=== PATIENT | male | born 1945 | race African-American/Black ===

== ENCOUNTER 2019-01-21 15:24 | Emergency (ER) | payer BC ==
[~2019-01-21] VITALS: Ht 195.6 cm; Wt 95.4 kg
[2019-01-21 15:45] LABS: HEMATOCRIT 39.8 % (39.0-50.0); IMMATURE GRANULOCYTES 0.8 % (0.0-5.0); MEAN CELL VOLUME 90.2 fL CALC (80.0-100.0); MEAN CORPUSCULAR HGB 29.5 pG CALC (26.0-32.0); MEAN CORPUSCULAR HGB CONC 32.7 g/L CALC (32.0-36.0); NEUT# 9.02 thou/uL (1.82-7.42); RED BLOOD COUNT 4.41 mill/uL (4.70-6.10); RED CELL DISTRI WIDTH 14.8 % (11.5-15.5)
[2019-01-21] MEDS ORDERED: PROPRANOLOL HCL20 MG PO (15:59)
[2019-01-21] MEDS ORDERED: PROTONIX40 M2 PO (15:59)
[2019-01-21] MEDS ORDERED: PRIMIDONE50 MG PO (15:59)
[2019-01-21] MEDS ORDERED: LANTUS100 UNIT/M (16:00)
[2019-01-21 16:08] LABS: ALBUMIN 4.9 g/dL (3.2-5.0); ALKALINE PHOSPHATASE 124 u/l (38-126); BUN 14 mg/dL (8-23); BUN/CREATININE RATIO 13 (12-20 (CALC)); CARBON DIOXIDE 23 mmol/l (22-30); CHLORIDE 100 mmol/l (95-108); CPK 92 u/l (52-200); CREATININE 1.1 mg/dL (0.7-1.3); GFR > 60 ML/MIN (>=60 (CALC)); GFR FOR AFR.AMER. > 60 ML/MIN (>=60 (CALC)); LIPASE 39 u/l (23-300); SGOT/AST 22 u/l (19-48); SODIUM 139 mmol/l (137-146); TOTAL PROTEIN 8.9 g/dL (6.3-8.2)
[2019-01-21 16:09] LABS: INTERNATIONAL NORMALIZED RATIO 1.1 RATIO (0.7-1.3); PROTHROMBIN TIME 11.1 SECONDS (9.0-12.5)
[2019-01-21 16:13] LABS: ANION GAP 21 (6-22 (CALC)); BILIRUBIN, TOTAL 0.5 mg/dL (0.0-1.4); POTASSIUM 4.7 mmol/l (3.5-5.1)
[2019-01-21 16:24] LABS: MYOGLOBIN 192 ng/mL (0 - 121)
[2019-01-21 16:43] LABS: TSH, 3RD GENERATION 0.93 uIU/mL (0.47 - 4.68)
[2019-01-21 17:43] LABS: URINE BILIRUBIN - DIPSTICK NEGATIVE (NEGATIVE); URINE BLOOD DIPSTICK SMALL (NEGATIVE); URINE COLOR YELLOW; URINE GLUCOSE - DIPSTICK >=1000 mg/dL (NEGATIVE); URINE KETONE NEGATIVE (NEGATIVE); URINE LEUK ESTERASE NEGATIVE (NEGATIVE); URINE NITRITE - DIPSTICK NEGATIVE (Negative); URINE PH 6.5 (4.5-8.0); URINE PROTEIN - DIPSTICK 30 mg/dL (NEG-TRACE); URINE SPECIFIC GRAVITY 1.025; URINE UROBILINOGEN - DIPSTICK 0.2 E.U./dL (0.2)
[2019-01-21 17:44] LABS: URINE WBC 0-2 WBC/hpf (0-5)
[2019-01-21 17:56] VITALS: BP 158/88
== END 2019-01-21 17:56 | disposition short-term general hospital (02) | DRG 948 ==
LOC: ED 15:24
PROVIDERS: Family Medicine
DX: R41.82 Altered mental status, unspecified (principal); E87.2 Acidosis; E11.9 Type 2 diabetes mellitus without complications; I10 Essential (primary) hypertension; Z86.73 Personal history of transient ischemic attack (TIA), and cerebral infarction without residual deficits; Z79.4 Long term (current) use of insulin; Z79.899 Other long term (current) drug therapy

== ENCOUNTER 2022-02-07 12:07 | Emergency (ER) | payer SELFPAY ==
[~2022-02-07] VITALS: Ht 190.5 cm; Wt 93.6 kg
[2022-02-07] VITALS (9 sets, daily range): BP systolic 165–193; BP diastolic 89–104
[~2022-02-07 12:07] MED LIST: LANTUS100 UNIT/M; PRIMIDONE50 MG PO; PROPRANOLOL HCL20 MG PO; PROTONIX40 M2 PO
[2022-02-07] MEDS ORDERED: OMNICEF300 M1 PO (14:20)
[2022-02-07] MEDS ORDERED: AMLODIPINE BESY10 MG PO (14:26)
== END 2022-02-07 14:45 | disposition home or self-care (01) | DRG 204 ==
LOC: ED 12:07
DX: R05.9 Cough, unspecified (principal); I10 Essential (primary) hypertension; J02.9 Acute pharyngitis, unspecified

== ENCOUNTER 2022-09-23 08:47 | Emergency (ER) | payer MEDICARE ==
[2022-09-23] VITALS (14 sets, daily range): BP systolic 128–143; BP diastolic 70–83
[~2022-09-23] VITALS: Ht 190.5 cm; Wt 82.0 kg
[~2022-09-23 08:47] MED LIST changes: +AMLODIPINE BESY10 MG PO; +OMNICEF300 M1 PO
[2022-09-23 10:04] LABS: URINE BILIRUBIN - DIPSTICK NEGATIVE (NEGATIVE); URINE BLOOD DIPSTICK NEGATIVE (NEGATIVE); URINE COLOR YELLOW; URINE GLUCOSE - DIPSTICK 250 mg/dL (NEGATIVE); URINE KETONE NEGATIVE (NEGATIVE); URINE LEUK ESTERASE NEGATIVE (NEGATIVE); URINE PROTEIN - DIPSTICK 30 mg/dL (NEG-TRACE); URINE SPECIFIC GRAVITY >=1.030
[2022-09-23 10:06] LABS: URINE NITRITE - DIPSTICK NEGATIVE (Negative)
[2022-09-23 10:11] LABS: URINE EPITHELIAL CELLS FEW EPI/hpf (0-FEW); URINE MUCUS MODERATE hpf (NONE-FEW)
[2022-09-23 12:43] LABS: BASO% 0.8 % (0-3); EOS% 2.4 % (0-8); HEMATOCRIT 41.4 % (39.0-50.0); HEMOGLOBIN 13.1 g/dl (14.0-18.0); IMMATURE GRANULOCYTES 0.2 % (0.0-5.0); MEAN CELL VOLUME 95.6 fL CALC (80.0-100.0); MEAN CORPUSCULAR HGB 30.3 pG CALC (26.0-32.0); MEAN CORPUSCULAR HGB CONC 31.6 g/dL CAL (32.0-36.0); MONO% 7.5 % (2-13); NEUT# 3.15 thou/uL (1.82-7.42); NEUT% 62.1 % (42-76); RED BLOOD COUNT 4.33 mill/uL (4.70-6.10); RED CELL DISTRI WIDTH 15.6 % (11.5-15.5)
[2022-09-23 12:56] LABS: ALBUMIN 4.9 g/dL (3.2-5.0); ALKALINE PHOSPHATASE 77 u/l (38-126); ANION GAP 14 (6-22 (CALC)); BUN 14 mg/dL (8-23); BUN/CREATININE RATIO 12 (12-20 (CALC)); CARBON DIOXIDE 26 mmol/l (22-30); CHLORIDE 105 mmol/l (95-108); CREATININE 1.1 mg/dL (0.7-1.3); GFR FOR AFR.AMER. > 60 ML/MIN (>=60 (CALC)); GFR OTHER RACES > 60 ML/MIN (>=60 (CALC)); POTASSIUM 3.9 mmol/l (3.5-5.1); SGOT/AST 19 u/l (19-48); SODIUM 142 mmol/l (137-146)
[2022-09-23 12:58] LABS: BILIRUBIN, TOTAL 0.8 mg/dL (0.2-1.3)
== END 2022-09-23 13:37 | disposition home or self-care (01) ==
LOC: ED 08:47
PROVIDERS: Family Medicine
DX: R39.12 Poor urinary stream (principal); Z86.73 Personal history of transient ischemic attack (TIA), and cerebral infarction without residual deficits

== ENCOUNTER 2022-10-12 04:06 | Emergency (ER) | payer MEDICARE ==
[~2022-10-12] VITALS: Ht 190.5 cm; Wt 95.0 kg
[2022-10-12] VITALS (8 sets, daily range): BP systolic 140–156; BP diastolic 76–93
[2022-10-12 04:50] LABS: BASO% 0.9 % (0-3); EOS% 3.6 % (0-8); HEMOGLOBIN 11.3 g/dl (14.0-18.0); IMMATURE GRANULOCYTES 0.2 % (0.0-5.0); LYMPH% 31.2 % (15-41); MEAN CELL VOLUME 96.2 fL CALC (80.0-100.0); MEAN CORPUSCULAR HGB CONC 32.3 g/dL CAL (32.0-36.0); MONO% 9.9 % (2-13); NEUT# 2.4 thou/uL (1.82-7.42); NEUT% 54.2 % (42-76); RED BLOOD COUNT 3.64 mill/uL (4.70-6.10); RED CELL DISTRI WIDTH 15.3 % (11.5-15.5)
[2022-10-12 04:51] LABS: URINE BILIRUBIN - DIPSTICK NEGATIVE (NEGATIVE); URINE COLOR YELLOW; URINE GLUCOSE - DIPSTICK NEGATIVE (NEGATIVE); URINE KETONE Negative (NEGATIVE); URINE PH 5.5 (4.5-8.0)
[2022-10-12 04:52] LABS: URINE BLOOD DIPSTICK NEGATIVE (NEGATIVE); URINE LEUK ESTERASE NEGATIVE (NEGATIVE); URINE NITRITE - DIPSTICK NEGATIVE (Negative); URINE PROTEIN - DIPSTICK NEGATIVE (NEG-TRACE)
[2022-10-12 05:02] LABS: ALBUMIN 4.2 g/dL (3.2-5.0); ALKALINE PHOSPHATASE 61 u/l (38-126); ANION GAP 11 (6-22 (CALC)); BILIRUBIN, TOTAL 0.6 mg/dL (0.2-1.3); BUN 14 mg/dL (8-23); BUN/CREATININE RATIO 13 (12-20 (CALC)); CARBON DIOXIDE 28 mmol/l (22-30); CHLORIDE 106 mmol/l (95-108); CREATININE 1.1 mg/dL (0.7-1.3); GFR FOR AFR.AMER. > 60 ML/MIN (>=60 (CALC)); GFR OTHER RACES > 60 ML/MIN (>=60 (CALC)); POTASSIUM 3.6 mmol/l (3.5-5.1); SGOT/AST 19 u/l (19-48); SODIUM 140 mmol/l (137-146); TOTAL PROTEIN 7.4 g/dL (6.3-8.2)
[2022-10-12] MEDS ORDERED: VOLTAREN - GENE75 MG PO (06:44)
== END 2022-10-12 06:52 | disposition home or self-care (01) ==
LOC: ED 04:06
PROVIDERS: Family Medicine
DX: S39.012A Strain of muscle, fascia and tendon of lower back, initial encounter (principal); M47.816 Spondylosis without myelopathy or radiculopathy, lumbar region; I10 Essential (primary) hypertension; I69.998 Other sequelae following unspecified cerebrovascular disease; N31.9 Neuromuscular dysfunction of bladder, unspecified; I69.954 Hemiplegia and hemiparesis following unspecified cerebrovascular disease affecting left non-dominant side; X58.XXXA Exposure to other specified factors, initial encounter
CPT/HCPCS: Q9967

== ENCOUNTER 2022-10-22 11:33 | Emergency (ER) | payer MEDICARE ==
[~2022-10-22] VITALS: Ht 190.5 cm; Wt 84.0 kg
[~2022-10-22 11:33] MED LIST changes: +VOLTAREN - GENE75 MG PO
[2022-10-22 11:46] VITALS: BP 144/81
[2022-10-22 12:00] VITALS: BP 148/84
[2022-10-22 13:27] LABS: URINE BILIRUBIN - DIPSTICK NEGATIVE (NEGATIVE); URINE COLOR YELLOW; URINE GLUCOSE - DIPSTICK NEGATIVE (NEGATIVE)
[2022-10-22 13:28] LABS: URINE BLOOD DIPSTICK NEGATIVE (NEGATIVE); URINE KETONE TRACE mg/dL (NEGATIVE); URINE LEUK ESTERASE NEGATIVE (NEGATIVE); URINE NITRITE - DIPSTICK NEGATIVE (Negative); URINE PROTEIN - DIPSTICK 30 mg/dL (NEG-TRACE); URINE SPECIFIC GRAVITY 1.025; URINE UROBILINOGEN - DIPSTICK 0.2 E.U./dL (0.2)
[2022-10-22 13:43] LABS: URINE MUCUS RARE hpf (NONE-FEW)
[2022-10-22] MEDS ORDERED: METHOCARBAMOL500 MG PO (13:53)
[2022-10-22] MEDS ORDERED: MEDDOSEPAK PO (13:53)
[2022-10-22 14:15] VITALS: BP 136/81
[2022-10-22 14:31] VITALS: BP 147/78
[2022-10-22 14:39] VITALS: BP 147/78
== END 2022-10-22 14:56 | disposition home or self-care (01) ==
LOC: ED 11:33
PROVIDERS: Nurse Practitioner
DX: M47.816 Spondylosis without myelopathy or radiculopathy, lumbar region (principal); Z86.73 Personal history of transient ischemic attack (TIA), and cerebral infarction without residual deficits

== ENCOUNTER 2023-04-27 09:49 | Observation (INO) | payer MEDICARE ==
[2023-04-27] VITALS (11 sets, daily range): BP systolic 120–139; BP diastolic 70–90
[~2023-04-27] VITALS: Ht 190.5 cm; Wt 84.0 kg
[~2023-04-27 09:49] MED LIST changes: +MEDDOSEPAK PO; +METHOCARBAMOL500 MG PO; +NOVOLOG100 UNIT
[2023-04-27 10:42] LABS: BASO% 0.3 % (0-3); EOS% 0.9 % (0-8); HEMOGLOBIN 11.8 g/dl (14.0-18.0); IMMATURE GRANULOCYTES 0.5 % (0.0-5.0); LYMPH% 9.4 % (15-41); MEAN CELL VOLUME 94.3 fL CALC (80.0-100.0); MEAN CORPUSCULAR HGB 29.3 pG CALC (26.0-32.0); MEAN CORPUSCULAR HGB CONC 31.1 g/dL CAL (32.0-36.0); MONO% 8.5 % (2-13); NEUT# 7.52 thou/uL (1.82-7.42); NEUT% 80.4 % (42-76); RED BLOOD COUNT 4.03 mill/uL (4.70-6.10); RED CELL DISTRI WIDTH 15.1 % (11.5-15.5)
[2023-04-27 10:56] LABS: INTERNATIONAL NORMALIZED RATIO 1.3 RATIO (0.7-1.3); PROTHROMBIN TIME 12.6 SECONDS (9.0-12.5)
[2023-04-27 10:57] LABS: ALBUMIN 3.9 g/dL (3.2-5.0); ALKALINE PHOSPHATASE 75 u/l (38-126); ANION GAP 10 (6-22 (CALC)); BILIRUBIN, TOTAL 0.4 mg/dL (0.2-1.3); BUN 10 mg/dL (8-23); BUN/CREATININE RATIO 12 (12-20 (CALC)); CARBON DIOXIDE 31 mmol/l (22-30); CHLORIDE 102 mmol/l (95-108); CREATININE 0.9 mg/dL (0.7-1.3); GFR FOR AFR.AMER. > 60 ML/MIN (>=60 (CALC)); GFR OTHER RACES > 60 ML/MIN (>=60 (CALC)); SGOT/AST 20 u/l (19-48); SODIUM 139 mmol/l (137-146); TOTAL PROTEIN 7.8 g/dL (6.3-8.2)
[2023-04-27 11:15] LABS: D-DIMER 4.92 mg/L (0.19-0.60)
[2023-04-27] MEDS ORDERED: predniSONE 20 MG/TAB PO ONE (12:15)
[2023-04-27] MEDS ORDERED: ENOXAPARIN SODIUM 100 MG/ML SYR SC ONE (13:15)
[2023-04-27] MEDS ORDERED: TAMSULOSIN0.4 MG PO (14:00)
[2023-04-27] MEDS ORDERED: OXYCODONE5 M1 PO (14:01)
[2023-04-27] MEDS ORDERED: ZOLOFT50 MG PO (14:02)
[2023-04-27] MEDS ORDERED: ACETAMINOPHEN 325 MG/TAB PO PRN (14:05)
[2023-04-27] MEDS ORDERED: MAGNESIUM HYDROXIDE 30 ML UDC PO PRN (14:05)
[2023-04-27] MEDS ORDERED: HYDROcodone 5 MG/Acetaminophen 325 MG/COMBO PO PRN (14:10)
[2023-04-27] MEDS ORDERED: oxyCODONE HCL 5 MG/TAB PO PRN (14:15)
[2023-04-27] MEDS ORDERED: GABAPENTIN 300 MG/CAP PO SCH (15:00)
[2023-04-27] MEDS ORDERED: INSULIN LISPRO 100 UNITS/ML ML SC SCH (17:00)
[2023-04-27] MEDS ORDERED: INSULIN DETEMIR 100 UNITS/ML SC SCH (21:00)
[2023-04-28] VITALS (7 sets, daily range): BP systolic 110–114; BP diastolic 68–76
[2023-04-28 05:38] LABS: BASO% 0.2 % (0-3); HEMATOCRIT 33.9 % (39.0-50.0); HEMOGLOBIN 10.9 g/dl (14.0-18.0); IMMATURE GRANULOCYTES 0.6 % (0.0-5.0); LYMPH% 11.9 % (15-41); MEAN CELL VOLUME 92.9 fL CALC (80.0-100.0); MEAN CORPUSCULAR HGB 29.9 pG CALC (26.0-32.0); MEAN CORPUSCULAR HGB CONC 32.2 g/dL CAL (32.0-36.0); MONO% 7.3 % (2-13); NEUT# 8.63 thou/uL (1.82-7.42); RED BLOOD COUNT 3.65 mill/uL (4.70-6.10); RED CELL DISTRI WIDTH 15.5 % (11.5-15.5)
[2023-04-28 05:52] LABS: ALBUMIN 3.6 g/dL (3.2-5.0); ALKALINE PHOSPHATASE 71 u/l (38-126); BILIRUBIN, TOTAL 0.4 mg/dL (0.2-1.3); BUN 20 mg/dL (8-23); BUN/CREATININE RATIO 19 (12-20 (CALC)); CALCULATED LDLCHOLESTEROL 72 mg/dL (62-129 (CALC)); CARBON DIOXIDE 27 mmol/l (22-30); CHLORIDE 104 mmol/l (95-108); CHOLESTEROL HDL RATIO 2.9 (<4.4 (CALC)); CREATININE 1.1 mg/dL (0.7-1.3); GFR FOR AFR.AMER. > 60 ML/MIN (>=60 (CALC)); GFR OTHER RACES > 60 ML/MIN (>=60 (CALC)); HDL CHOLESTEROL 44 mg/dL (39.0-59.0); MAGNESIUM 2.2 mg/dL (1.6-2.3); SGOT/AST 17 u/l (19-48); SODIUM 137 mmol/l (137-146); TOTAL CHOLESTEROL 126 mg/dl (0-199); TOTAL PROTEIN 7.3 g/dL (6.3-8.2); TOTAL TRIGLYCERIDES 52 mg/dl (0-149); VLDL CHOLESTROL 10 mg/dl (0-38 (CALC))
[2023-04-28 05:54] LABS: ANION GAP 11 (6-22 (CALC))
[2023-04-28] MEDS ORDERED: TAMSULOSIN HCL 0.4 MG CAP PO SCH (08:00)
[2023-04-28] MEDS ORDERED: amLODIPine BESYLATE 5 MG/TAB PO SCH (09:00)
[2023-04-28] MEDS ORDERED: SERTRALINE HCL 50 MG/TAB PO SCH (09:00)
[2023-04-28] MEDS ORDERED: APIXABAN BASE 2.5 MG/TAB TAB PO SCH (09:00)
[2023-04-29] VITALS (7 sets, daily range): BP systolic 105–122; BP diastolic 65–77
[2023-04-29 05:48] LABS: BASO% 0.6 % (0-3); EOS% 2.3 % (0-8); HEMATOCRIT 32.1 % (39.0-50.0); HEMOGLOBIN 10.3 g/dl (14.0-18.0); IMMATURE GRANULOCYTES 0.9 % (0.0-5.0); LYMPH% 26.7 % (15-41); MEAN CELL VOLUME 93.6 fL CALC (80.0-100.0); MEAN CORPUSCULAR HGB CONC 32.1 g/dL CAL (32.0-36.0); MONO% 10.3 % (2-13); NEUT# 3.78 thou/uL (1.82-7.42); NEUT% 59.2 % (42-76); RED BLOOD COUNT 3.43 mill/uL (4.70-6.10); RED CELL DISTRI WIDTH 15.6 % (11.5-15.5)
[2023-04-29 06:11] LABS: ANION GAP 10 (6-22 (CALC)); BUN 23 mg/dL (8-23); BUN/CREATININE RATIO 25 (12-20 (CALC)); CARBON DIOXIDE 28 mmol/l (22-30); CHLORIDE 104 mmol/l (95-108); CREATININE 0.9 mg/dL (0.7-1.3); GFR FOR AFR.AMER. > 60 ML/MIN (>=60 (CALC)); GFR OTHER RACES > 60 ML/MIN (>=60 (CALC)); POTASSIUM 4.1 mmol/l (3.5-5.1); SODIUM 138 mmol/l (137-146)
[2023-04-29 14:39] LABS: URINE BILIRUBIN - DIPSTICK Negative (NEGATIVE); URINE BLOOD DIPSTICK Negative (NEGATIVE); URINE COLOR Yellow; URINE GLUCOSE - DIPSTICK Negative (NEGATIVE); URINE KETONE Negative (NEGATIVE); URINE LEUK ESTERASE Negative (NEGATIVE); URINE NITRITE - DIPSTICK Negative (Negative); URINE PH 5.5 (4.5-8.0); URINE PROTEIN - DIPSTICK Negative (NEG-TRACE); URINE SPECIFIC GRAVITY >=1.030; URINE UROBILINOGEN - DIPSTICK 0.2 E.U./dL (0.2)
[2023-04-29] MEDS ORDERED: Polyethylene Glycol 3350 17 GM/PKT PO SCH (16:10)
[2023-04-30] VITALS (7 sets, daily range): BP systolic 110–128; BP diastolic 65–79
[2023-04-30 06:51] LABS: BASO% 0.5 % (0-3); EOS% 2.7 % (0-8); HEMATOCRIT 32.9 % (39.0-50.0); HEMOGLOBIN 10.4 g/dl (14.0-18.0); IMMATURE GRANULOCYTES 1.1 % (0.0-5.0); LYMPH% 22.3 % (15-41); MEAN CELL VOLUME 94.8 fL CALC (80.0-100.0); MEAN CORPUSCULAR HGB CONC 31.6 g/dL CAL (32.0-36.0); MONO% 8.7 % (2-13); NEUT# 4.15 thou/uL (1.82-7.42); NEUT% 64.7 % (42-76); RED BLOOD COUNT 3.47 mill/uL (4.70-6.10); RED CELL DISTRI WIDTH 15.6 % (11.5-15.5)
[2023-04-30 07:45] LABS: ALBUMIN 3.2 g/dL (3.2-5.0); ALKALINE PHOSPHATASE 62 u/l (38-126); ANION GAP 8 (6-22 (CALC)); BUN 17 mg/dL (8-23); BUN/CREATININE RATIO 21 (12-20 (CALC)); CARBON DIOXIDE 30 mmol/l (22-30); CHLORIDE 105 mmol/l (95-108); CREATININE 0.8 mg/dL (0.7-1.3); GFR FOR AFR.AMER. > 60 ML/MIN (>=60 (CALC)); GFR OTHER RACES > 60 ML/MIN (>=60 (CALC)); POTASSIUM 4.3 mmol/l (3.5-5.1); SGOT/AST 26 u/l (19-48); SODIUM 138 mmol/l (137-146); TOTAL PROTEIN 6.5 g/dL (6.3-8.2)
[2023-04-30 07:59] LABS: BILIRUBIN, TOTAL 0.2 mg/dL (0.2-1.3)
[2023-04-30] MEDS ORDERED: BISACODYL 10 MG SUPP RE SCH (10:30)
[2023-04-30] MEDS ORDERED: LACTULOSE 20 GM/30 ML UDC PO SCH (13:30)
[2023-05-01] VITALS (9 sets, daily range): BP systolic 112–127; BP diastolic 64–73
[2023-05-01 07:32] LABS: BASO% 0.4 % (0-3); HEMATOCRIT 32.7 % (39.0-50.0); HEMOGLOBIN 10.2 g/dl (14.0-18.0); IMMATURE GRANULOCYTES 1.2 % (0.0-5.0); LYMPH% 24.9 % (15-41); MEAN CORPUSCULAR HGB 30.3 pG CALC (26.0-32.0); MEAN CORPUSCULAR HGB CONC 31.2 g/dL CAL (32.0-36.0); MONO% 7.1 % (2-13); NEUT# 4.39 thou/uL (1.82-7.42); NEUT% 63.4 % (42-76); RED BLOOD COUNT 3.37 mill/uL (4.70-6.10); RED CELL DISTRI WIDTH 15.7 % (11.5-15.5)
[2023-05-01 07:57] LABS: ANION GAP 11 (6-22 (CALC)); BUN 15 mg/dL (8-23); BUN/CREATININE RATIO 19 (12-20 (CALC)); CARBON DIOXIDE 28 mmol/l (22-30); CHLORIDE 104 mmol/l (95-108); CREATININE 0.8 mg/dL (0.7-1.3); GFR FOR AFR.AMER. > 60 ML/MIN (>=60 (CALC)); GFR OTHER RACES > 60 ML/MIN (>=60 (CALC)); POTASSIUM 4.6 mmol/l (3.5-5.1); SODIUM 138 mmol/l (137-146)
[2023-05-02 00:25] VITALS: BP 110/69
[2023-05-02 03:20] VITALS: BP 118/68
[2023-05-02 05:33] LABS: BASO% 0.3 % (0-3); EOS% 4.3 % (0-8); HEMOGLOBIN 9.9 g/dl (14.0-18.0); IMMATURE GRANULOCYTES 1.4 % (0.0-5.0); MEAN CORPUSCULAR HGB CONC 30.9 g/dL CAL (32.0-36.0); MONO% 7.1 % (2-13); NEUT# 4.23 thou/uL (1.82-7.42); NEUT% 64.9 % (42-76); RED BLOOD COUNT 3.3 mill/uL (4.70-6.10); RED CELL DISTRI WIDTH 15.5 % (11.5-15.5)
[2023-05-02 05:47] LABS: ANION GAP 7 (6-22 (CALC)); BUN 13 mg/dL (8-23); BUN/CREATININE RATIO 15 (12-20 (CALC)); CARBON DIOXIDE 30 mmol/l (22-30); CHLORIDE 105 mmol/l (95-108); CREATININE 0.9 mg/dL (0.7-1.3); GFR FOR AFR.AMER. > 60 ML/MIN (>=60 (CALC)); GFR OTHER RACES > 60 ML/MIN (>=60 (CALC)); POTASSIUM 4.1 mmol/l (3.5-5.1); SODIUM 138 mmol/l (137-146)
[2023-05-02 07:42] VITALS: BP 123/77
[2023-05-02 10:58] VITALS: BP 116/71
[2023-05-02] MEDS ORDERED: TRESIBA FL100 UNIT/M SC (12:59)
[2023-05-02] MEDS ORDERED: ELIQUIS2.5 MG PO (13:01)
[2023-05-02 14:50] VITALS: BP 119/69
[2023-05-05] MEDS ORDERED: APIXABAN BASE 2.5 MG/TAB TAB PO SCH (09:00)
== END 2023-05-02 19:00 ==
LOC: ED 09:49 → ED-I 10:34 → ED 13:24 → MS2 13:25
PROVIDERS: Nurse Practitioner; Nurse Practitioner Family; ADMIT Student in an Organized Health Care Education/Training Program; ATTEND Student in an Organized Health Care Education/Training Program
DX: I82.412 Acute embolism and thrombosis of left femoral vein (principal); I82.432 Acute embolism and thrombosis of left popliteal vein; K59.00 Constipation, unspecified; M47.816 Spondylosis without myelopathy or radiculopathy, lumbar region; D64.9 Anemia, unspecified; E11.9 Type 2 diabetes mellitus without complications; I10 Essential (primary) hypertension; Z79.4 Long term (current) use of insulin; Z86.73 Personal history of transient ischemic attack (TIA), and cerebral infarction without residual deficits; Z96.642 Presence of left artificial hip joint
CPT/HCPCS: J1650

== ENCOUNTER 2023-05-20 02:49 | Emergency (ER) | payer MEDICARE ==
[2023-05-20] VITALS (18 sets, daily range): BP systolic 104–133; BP diastolic 62–76
[~2023-05-20] VITALS: Ht 190.5 cm; Wt 82.3 kg
[~2023-05-20 02:49] MED LIST changes: +ELIQUIS2.5 MG PO; +OXYCODONE5 M1 PO; +TAMSULOSIN0.4 MG PO; +TRESIBA FL100 UNIT/M SC; +ZOLOFT50 MG PO
[2023-05-20] MEDS ORDERED: REMERON SOLTAB15 MG PO (03:21)
[2023-05-20] MEDS ORDERED: JANTOVEN5 MG PO (03:23)
[2023-05-20 06:36] LABS: URINE BILIRUBIN - DIPSTICK Negative (NEGATIVE); URINE BLOOD DIPSTICK Large (NEGATIVE); URINE GLUCOSE - DIPSTICK Negative (NEGATIVE); URINE PROTEIN - DIPSTICK 30 mg/dL (NEG-TRACE); URINE UROBILINOGEN - DIPSTICK 0.2 E.U./dL (0.2)
[2023-05-20 06:43] LABS: URINE COLOR Yellow; URINE LEUK ESTERASE Moderate (NEGATIVE); URINE NITRITE - DIPSTICK Positive (Negative)
[2023-05-20 06:44] LABS: URINE KETONE Negative (NEGATIVE); URINE RBC 25-50 RBC/hpf (0-5); URINE WBC >100 WBC/hpf (0-5)
[2023-05-20 06:45] LABS: URINE BACTERIA MANY hpf; URINE EPITHELIAL CELLS MODERATE EPI/hpf (0-FEW)
[2023-05-20] MEDS ORDERED: HYDROcodone 5 MG/Acetaminophen 325 MG/COMBO PO ONE (06:45)
[2023-05-20 06:51] LABS: PROTHROMBIN TIME 18.3 SECONDS (9.0-12.5)
[2023-05-20] MEDS ORDERED: SULFAMETHOXAZOLE W/TRIMETHOPRI 1 COMBO TAB PO ONE (07:00)
[2023-05-20] MEDS ORDERED: BACTRIM DS1 TAB PO (07:00)
[2023-05-20] MEDS ORDERED: CEPHALEXIN500 MG PO (09:23)
[2023-05-23] MEDS ORDERED: OXYCODONE5 M1 PO (16:23)
== END 2023-05-20 07:18 | disposition home or self-care (01) ==
LOC: ED 02:49
PROVIDERS: Family Medicine
DX: N39.0 Urinary tract infection, site not specified (principal); B96.89 Other specified bacterial agents as the cause of diseases classified elsewhere; M17.12 Unilateral primary osteoarthritis, left knee; I10 Essential (primary) hypertension; E11.9 Type 2 diabetes mellitus without complications; L89.152 Pressure ulcer of sacral region, stage 2; Z86.73 Personal history of transient ischemic attack (TIA), and cerebral infarction without residual deficits; Z79.01 Long term (current) use of anticoagulants; Z79.4 Long term (current) use of insulin; Z96.652 Presence of left artificial knee joint

== ENCOUNTER 2024-02-18 10:51 | Observation (INO) | payer MEDICARE ==
[~2024-02-18] VITALS: Ht 190.5 cm; Wt 88.4 kg
[2024-02-18] VITALS (14 sets, daily range): BP systolic 118–140; BP diastolic 69–82
[~2024-02-18 10:51] MED LIST changes: +BACTRIM DS1 TAB PO; +BAYER ASPIRIN E81 MG PO; +CEPHALEXIN500 MG PO; +DOXYCYCLINE100 MG PO; +HYDROCO/APAP1 TA9 PO; +JANTOVEN5 MG PO; +MIRTAZAPINE15 M1 PO; +NORVASC PO; +OXYBUTYNIN CHLOR5 M2; +REMERON SOLTAB15 MG PO
--- NOTE | 2024-02-18 10:51 | NUR ---
PT TO ER ROOM 10 VIA PERSONAL WHEELCHAIR. AT SIDE.
[2024-02-18 11:37] LABS: BASO% 0.6 % (0-3); EOS% 2.5 % (0-8); HEMATOCRIT 30.7 % (39.0-50.0); HEMOGLOBIN 9.6 g/dl (14.0-18.0); IMMATURE GRANULOCYTES 0.2 % (0.0-5.0); LYMPH% 11.3 % (15-41); MEAN CELL VOLUME 92.5 fL CALC (80.0-100.0); MEAN CORPUSCULAR HGB 28.9 pG CALC (26.0-32.0); MEAN CORPUSCULAR HGB CONC 31.3 g/dL CAL (32.0-36.0); MONO% 7.4 % (2-13); NEUT# 6.43 thou/uL (1.82-7.42); RED BLOOD COUNT 3.32 mill/uL (4.70-6.10)
--- NOTE | 2024-02-18 11:50 | NUR ---
Reassessment of patient completed. No distress noted.
[2024-02-18 12:04] LABS: ALBUMIN 4.3 g/dL (3.2-5.0); ALKALINE PHOSPHATASE 69 u/l (38-126); ANION GAP 13 (6-22 (CALC)); BUN 14 mg/dL (8-23); BUN/CREATININE RATIO 12 (12-20 (CALC)); CARBON DIOXIDE 25 mmol/l (22-30); CHLORIDE 105 mmol/l (95-108); CREATININE 1.2 mg/dL (0.7-1.3); ESTIMATED GFR 62 ML/MIN (>=90 (CALC)); LIPASE 17 u/l (23-300); POTASSIUM 3.6 mmol/l (3.5-5.1); SODIUM 140 mmol/l (137-146); TOTAL PROTEIN 8.1 g/dL (6.3-8.2)
[2024-02-18 12:05] LABS: BILIRUBIN, TOTAL 0.7 mg/dL (0.2-1.3); SGOT/AST 25 u/l (19-48)
--- NOTE | 2024-02-18 12:45 | NUR ---
DR EVANS AT BEDSIDE TO DISCUSS RESULTS AND POC
[2024-02-18] MEDS ORDERED: cefTRIAXone SODIUM 2 GM in SODIUM CHLORIDE 0.9% 100 ML IV ONE (12:50)
[2024-02-18] MEDS ORDERED: AZITHROMYCIN 250 MG/TAB PO ONE (12:55)
[2024-02-18] MEDS ORDERED: AMLODIPINE BESYL5 MG PO (13:21)
[2024-02-18] MEDS ORDERED: TAMSULOSIN0.4 MG PO (13:22)
[2024-02-18] MEDS ORDERED: JANTOVEN5 MG PO (13:22)
[2024-02-18] MEDS ORDERED: MIRTAZAPINE15 MG PO (13:23)
[2024-02-18] MEDS ORDERED: OXYCODONE5 M1 PO (13:23)
[2024-02-18] MEDS ORDERED: ACETAMINOPHEN 325 MG/TAB PO PRN (13:30)
[2024-02-18] MEDS ORDERED: MAGNESIUM HYDROXIDE 30 ML UDC PO PRN (13:30)
[2024-02-18] MEDS ORDERED: OXYBUTYNIN CHLO15 MG PO (13:33)
[2024-02-18 13:43] LABS: URINE BILIRUBIN - DIPSTICK Negative (NEGATIVE); URINE BLOOD DIPSTICK Negative (NEGATIVE); URINE GLUCOSE - DIPSTICK Negative (NEGATIVE); URINE KETONE Negative (NEGATIVE); URINE LEUK ESTERASE Negative (NEGATIVE); URINE NITRITE - DIPSTICK Negative (Negative); URINE PH 5.5 (4.5-8.0); URINE PROTEIN - DIPSTICK 30 mg/dL (NEG-TRACE); URINE SPECIFIC GRAVITY 1.025
--- NOTE | 2024-02-18 13:44 | NUR ---
REPORT CALLED TO YAYA JAEGER
[2024-02-18 13:47] LABS: URINE COLOR Yellow
[2024-02-18 13:54] LABS: URINE SQUAMOUS EPITHELIAL CELL RARE EPI/hpf (0-FEW)
--- NOTE | 2024-02-18 14:00 | NUR ---
PT ARRIVED TO UNIT VIA STREACHER TRANSPORT, PT DID REQUIRE A SLIDE TRANSFER TO BED, PT UNABLE TO WALK TO THE BED ON HIS OWN, USES WHEELCHAIR AT HOME.
--- NOTE | 2024-02-18 14:01 | NUR ---
TO MED SURG VIA STRETCHER, WITH ALL PERSONAL BELONGINGS. TELE MONITOR #[address] YAYA JAEGER AT BEDSIDE
--- NOTE | 2024-02-18 14:05 | NUR ---
PT IS AOX3, RESPIRATIONS ARE EVEN AND UNLABORED, LUNGS ARE DIM AT BILATERAL LOWER LOBES, CLEAR AT BILATERAL UPPER LOBES. BOWEL SOUNDS ARE ACTIVE, PEDAL PULSES ARE PALPABLE TO TOUCH, PT DENIES PAIN AT THIS TIME.
--- NOTE | 2024-02-18 18:09 | NUR ---
PT SITTING UP IN BED WATCHING TV. RESPIRATIONS REMAIN EVEN AND UNLABORED, PT DENIES PAIN AT THIS TIME.
--- NOTE | 2024-02-18 20:42 | NUR ---
PT RESTING ON BED WATCHING TV. ALERT AND ORIENTED X3. RESPS EVEN AND UNLABORED. LUNG SOUNDS CLEAR AT BILATERAL UPPER LOBES- DIMISHED AT BILATERL LOWER LOBES. PUREWICK ON PLACE WITH DARK YELLOW URINE. TELE ON PLACE ORDER RUNNING SR-72. 20 G IV SITE LOOK CLEAN, DRY AND INTACT-FLUSHED WITH 5 CC. PEDAL PULSES PALAPABLE TO TOUCH. DENIES ANY ADDITIONAL NEEDS. ENCOURAGE TO CALL FOR ASSISTANCE, CALL LIGHT IN REACH AND SAFETY PRECAUTIONS IN PLACE.
[2024-02-18] MEDS ORDERED: ENOXAPARIN SODIUM 40 MG/0.4 ML SYR SC SCH (21:00)
[2024-02-18] MEDS ORDERED: OXYBUTYNIN 5 MG/TAB PO SCH (21:00)
[2024-02-18] MEDS ORDERED: TAMSULOSIN HCL 0.4 MG CAP PO SCH (21:00)
[2024-02-18] MEDS ORDERED: MIRTAZAPINE 15 MG/TAB PO SCH (21:00)
[2024-02-19] VITALS (7 sets, daily range): BP systolic 123–137; BP diastolic 63–80
--- NOTE | 2024-02-19 01:33 | NUR ---
PT SLEEPING IN SEMI FOWLERS POSITION. RESPS ARE EVEN AND UNLABORED. NO DISTRESS NOTED. TELE MONITOR READING SR-94. PUREWICK IN PLACE WITH SARAH URINE. BED ALARM IN PLACE, BED IN LOWEST POSITON. CALL LIGHT IN RECAH AND SAFETY PRECAUTIONS IN PLACE.
--- NOTE | 2024-02-19 04:41 | NUR ---
PT RESTING ON BED WITH THE HEAD OF BED ELEVETAED AT THIS TIME. RESPSA RE EVEN AND UNLABORED. NO SIGNS OF DISTRESS. PUREWICK ON PLACE ORDERED. CALL LIGHT IN REACH AND SAFTEY PRECAUTIONS IN PLACE.
[2024-02-19 05:06] LABS: BASO% 1.2 % (0-3); EOS% 5.9 % (0-8); HEMATOCRIT 28.5 % (39.0-50.0); HEMOGLOBIN 8.9 g/dl (14.0-18.0); IMMATURE GRANULOCYTES 0.2 % (0.0-5.0); LYMPH% 25.3 % (15-41); MEAN CELL VOLUME 92.2 fL CALC (80.0-100.0); MEAN CORPUSCULAR HGB 28.8 pG CALC (26.0-32.0); MEAN CORPUSCULAR HGB CONC 31.2 g/dL CAL (32.0-36.0); MONO% 12.3 % (2-13); NEUT# 2.73 thou/uL (1.82-7.42); NEUT% 55.1 % (42-76); RED BLOOD COUNT 3.09 mill/uL (4.70-6.10); RED CELL DISTRI WIDTH 18.8 % (11.5-15.5)
[2024-02-19 05:21] LABS: ALBUMIN 3.5 g/dL (3.2-5.0); MAGNESIUM 2.1 mg/dL (1.6-2.3); POTASSIUM 3.6 mmol/l (3.5-5.1); TOTAL PROTEIN 6.6 g/dL (6.3-8.2)
[2024-02-19 05:42] LABS: BILIRUBIN, TOTAL 0.4 mg/dL (0.2-1.3)
--- NOTE | 2024-02-19 07:19 | NUR ---
PT IS AOX3, RESPIRATIONS ARE EVEN AND UNLABORED, SOFT RONCHI NOTED TO BILATERAL BASES ON LUNGS, BILATERAL UPPERS LUNGS CLEAR, BOWEL SOUNDS ACTIVE, PEDAL PULSES PALPABLE TOUCH, PT DENIES PAIN AT THIS TIME.
[2024-02-19 12:34] LABS: INTERNATIONAL NORMALIZED RATIO 1.2 RATIO (0.7-1.3)
[2024-02-19] MEDS ORDERED: AZITHROMYCIN 500 MG in SODIUM CHLORIDE 0.9% 250 ML IV SCH (14:00)
[2024-02-19] MEDS ORDERED: warFARIN SODIUM 5 MG/TAB PO SCH (14:00)
--- NOTE | 2024-02-19 16:28 | NUR ---
PT SITTING UP IN BED WATCHING TV, RESPIRATIONS ARE EVEN AND UNLABORED, PT DENIES PAIN AT THIS TIME.
--- NOTE | 2024-02-19 19:40 | NUR ---
PATIENT OBSERVED SITTING IN BED. ALERT AND ABLE TO MAKE NEEDS KNOWN. ASSESSMENT COMPLETE. NO DISTRESS NOTED. NO COUGH OBSERVED. NO COMPLAINTS OF PAIN. ABLE TO FOLLOW COMMANDS. DENIES NEEDING ANYTHING AT THIS TIME. BED IN LOW POSITION. CALL FREEMAN IN REACH.
[2024-02-20] VITALS: BP 133/80
--- NOTE | 2024-02-20 | NUR ---
PATIENT REMAINS RESTING IN BED. DENIES NEEDING ANYTHING AT THIS TIME. BED REMAINS IN LOW POSITION. CALL FREEMAN IN REACH.
[2024-02-20 04:24] VITALS: BP 133/76
[2024-02-20 04:30] VITALS: BP 133/76
--- NOTE | 2024-02-20 04:40 | NUR ---
PATIENT REMAINS RESTING IN BED. DENIES NEEDING ANYTHING AT THIS TIME. BED REMAINS IN LOW POSITION. CALL FREEMAN IN REACH.
[2024-02-20 05:27] LABS: EOS% 6.8 % (0-8); HEMATOCRIT 29.2 % (39.0-50.0); HEMOGLOBIN 9.2 g/dl (14.0-18.0); IMMATURE GRANULOCYTES 0.4 % (0.0-5.0); LYMPH% 28.6 % (15-41); MEAN CELL VOLUME 93.6 fL CALC (80.0-100.0); MEAN CORPUSCULAR HGB 29.5 pG CALC (26.0-32.0); MEAN CORPUSCULAR HGB CONC 31.5 g/dL CAL (32.0-36.0); MONO% 10.6 % (2-13); NEUT# 2.53 thou/uL (1.82-7.42); NEUT% 52.6 % (42-76); RED BLOOD COUNT 3.12 mill/uL (4.70-6.10); RED CELL DISTRI WIDTH 18.6 % (11.5-15.5)
[2024-02-20 05:41] LABS: ALBUMIN 3.4 g/dL (3.2-5.0); BILIRUBIN, TOTAL 0.5 mg/dL (0.2-1.3); CREATININE 1.1 mg/dL (0.7-1.3); MAGNESIUM 2.2 mg/dL (1.6-2.3); POTASSIUM 3.9 mmol/l (3.5-5.1); TOTAL PROTEIN 6.6 g/dL (6.3-8.2)
[2024-02-20 05:43] LABS: INTERNATIONAL NORMALIZED RATIO 1.2 RATIO (0.7-1.3)
--- NOTE | 2024-02-20 05:44 | NUR ---
PATIENT WENT DOWN TO XRAY.
[2024-02-20 05:50] LABS: PROTHROMBIN TIME 12.8 SECONDS (9.0-12.5)
--- NOTE | 2024-02-20 05:55 | NUR ---
PATIENT RETURNED FROM XRAY. UNEVENTFUL. GUEVARA PASS ON CHART.
[2024-02-20 06:56] VITALS: BP 135/67
--- NOTE | 2024-02-20 07:22 | NUR ---
PT IS AOX4, RESPIRATIONS ARE EVEN AND UNLABORED ON ROOM AIR, LUNGS ARE CLEAR, BOWEL SOUNDS ARE ACTIVE, PEDAL PULSES ARE PALPABLE TO TOUCH, PT DENIES PAIN AT THIS TIME.
[2024-02-20] MEDS ORDERED: AZITHROMYCIN500 MG PO (09:42)
[2024-02-20 10:37] VITALS: BP 120/74
--- NOTE | 2024-02-20 14:20 | NUR ---
REVIEWED DISCHARGE INSTRUCTIONS WITH PT AND . PT CURRENTLY RECIEVING LAST DOES OF IV ABX AT PATIENT AND WIFES REQUEST BEFORE DISCHARGE. PT WILL DISCHARGE UPON COMPLETION.
--- NOTE | 2024-02-20 16:01 | NUR ---
PT LEFT THE FLOOR VIA WHEELCHAIR TRANSPORT WITH BELONGINGS IN HAND.
--- NOTE | 2024-02-21 11:15 | NUR ---
Discharge follow up calll completed 02/21/24. Pt's states the patient had a good night and slept well. Pt is taking prescribed medication as directed. He has a follow up appointment with his PCP on next Saturday. No needs or concerns verbalized by at this time.
== END 2024-02-20 15:58 | disposition home health service (06) ==
LOC: ED 10:51 → ED-I 12:40 → ED 12:54 → MS2 12:55
PROVIDERS: Family Medicine; Nurse Practitioner Family; ADMIT Internal Medicine; ATTEND Internal Medicine
DX: J18.9 Pneumonia, unspecified organism (principal); I10 Essential (primary) hypertension; E10.9 Type 1 diabetes mellitus without complications; Z86.718 Personal history of other venous thrombosis and embolism; Z79.01 Long term (current) use of anticoagulants; Z86.73 Personal history of transient ischemic attack (TIA), and cerebral infarction without residual deficits; Z20.822 Contact with and (suspected) exposure to COVID-19
CPT/HCPCS: G0378; J0456; J1650